=== PATIENT | male | born 1990 ===

== ENCOUNTER 2017-03-02 18:30 | Day surgery (SDC) | payer OTHER ==
[~2017-03-02] VITALS: Ht 167.6 cm; Wt 70.9 kg
[2017-03-02] VITALS (7 sets, daily range): BP systolic 98–118; BP diastolic 52–76; PULSE 65–89; TEMP 98.8–100.1
[2017-03-03 00:45] VITALS: BP 111/58; PULSE 73; TEMP 99.4
[2017-03-03 05:37] VITALS: BP 102/54; PULSE 67; TEMP 98.5
[2017-03-03 09:28] VITALS: BP 107/58; PULSE 75; TEMP 98.1
[2017-03-03] MEDS ORDERED: ROXICODONE 55 MG/TAB PO (11:36)
== END 2017-03-03 12:50 | disposition home or self-care (01) ==
LOC: SDCO 18:30 → SURG 18:30 → SDCO 03-03 12:50 → SURG 03-03 12:50 → EDSTATUS 03-07 09:06
DX: K35.3 Acute appendicitis with localized peritonitis (principal)
CPT/HCPCS: OP; J1100; J1170; J1885; J2405; J2704; J2710; J3010; J7120